=== PATIENT | male | born 1995 ===

== ENCOUNTER 2017-07-19 15:39 | Emergency (ER) | payer SELFPAY ==
[~2017-07-19] VITALS: Ht 180.3 cm; Wt 136.0 kg
[2017-07-19 15:41] VITALS: BP 232/127; PULSE 74; RESP 12; TEMP 98.4; O2SAT 96
== END 2017-07-19 20:09 | disposition left against medical advice (07) ==
LOC: NED 15:39
DX: I10 Essential (primary) hypertension (principal)
CPT/HCPCS: 99281